=== PATIENT | female | born 1990 | race Two or more races ===

== ENCOUNTER 2022-11-26 23:01 | Emergency (ER) | payer OTHER ==
[~2022-11-26] VITALS: Ht 152.4 cm; Wt 53.5 kg
[2022-11-26 23:47] VITALS: BP 124/74
[2022-11-26] MEDS ORDERED: FLUORESCEIN SODIUM OPHTH 1 EA STRIP ONE (23:54)
[2022-11-27] MEDS ORDERED: CIPR2.5D14 RIGHTEYE (00:11)
--- NOTE | 2022-11-27 00:32 | NUR ---
Patient discharged to home in stable condition. Written and verbal after care instructions given. Patient verbalizes understanding of instruction. Pt ambulatory with a steady gait
[2022-11-27] MEDS ORDERED: FLUORESCEIN SODIUM OPHTH 1 EA STRIP OP ONE (01:00)
[2022-11-27] MEDS ORDERED: TETRACAINE HCL 0.5% OPHTALMIC 15 ML BOTTLE OP ONE (01:00)
== END 2022-11-27 00:35 | disposition home or self-care (01) ==
LOC: ER 23:03
DX: S05.01XA Injury of conjunctiva and corneal abrasion without foreign body, right eye, initial encounter (principal); Z79.899 Other long term (current) drug therapy; X58.XXXA Exposure to other specified factors, initial encounter; Y93.89 Activity, other specified; Y92.89 Other specified places as the place of occurrence of the external cause; Y99.8 Other external cause status